=== PATIENT | male | born 1995 | race Caucasian/White ===

== ENCOUNTER 2022-06-25 09:05 | Emergency (ER) | payer OTHER ==
[~2022-06-25] VITALS: Ht 177.8 cm; Wt 84.1 kg
[2022-06-25] MEDS ORDERED: KETOROLAC 30 MG/ML 1ML VIAL IV ONE (09:15)
[2022-06-25] MEDS ORDERED: diazePAM 10MG/2ML SYRINGE IV ONE (09:15)
[2022-06-25] MEDS ORDERED: ACETAMINOPHEN 500 MG TAB PO ONE (10:15)
[2022-06-25] MEDS ORDERED: LIDOCAINE 5% (LIDODERM) PATCH TD ONE (10:15)
[2022-06-25 10:22] VITALS: O2SAT 99
[2022-06-25] MEDS ORDERED: VALI5TAB PO (12:10)
[2022-06-25] MEDS ORDERED: NAPR-837 PO (12:10)
[2022-06-25] MEDS ORDERED: LIDO5DIS41 TD (12:11)
[2022-06-25 12:24] VITALS: BP 136/70
== END 2022-06-25 12:43 | disposition home or self-care (01) ==
LOC: M ED 09:05 → EDBD 09:05 → M ED 12:43
DX: S39.012A Strain of muscle, fascia and tendon of lower back, initial encounter (principal); Y93.B3 Activity, free weights; Z79.1 Long term (current) use of non-steroidal anti-inflammatories (NSAID); Z79.899 Other long term (current) drug therapy
CPT/HCPCS: 96374; 96375; 99284; J1885; J3360